=== PATIENT | male | born 1950 | race Caucasian/White ===

== ENCOUNTER 2022-11-14 14:33 | Inpatient (IN) | payer OTHER ==
[~2022-11-14] VITALS: Ht 175.3 cm; Wt 96.3 kg
[2022-11-14] MEDS ORDERED: cefTRIAXone 1GM/50ML D5W 50 ML IV ONE (15:30)
[2022-11-14] MEDS ORDERED: AZITHROMYCIN 500MG/ 250ML 250 ML IV ONE (15:30)
[2022-11-14 16:01] LABS: Basophils # (auto) 0 10 ^3/uL (0-0.2); Basophils % (auto) 0.5 % (0.0-2.0); Eosinophils # (auto) 0.1 10 ^3/uL (0-0.8); Eosinophils % (auto) 0.7 % (0.0-7.0); Hematocrit 41.6 % (41.0-53.0); Lymphocytes # (auto) 1.5 10 ^3/uL (0.4-5.4); Lymphocytes % (auto) 15.7 % (10.0-50.0); Mean Corpuscular Hemoglobin 31.9 pg (28.0-32.0); Mean Corpuscular Hgb Conc. 33.8 g/dL (32.0-36.0); Mean Corpuscular Volume 94.3 fL (80.0-100.0); Monocytes # (auto) 0.7 10 ^3/uL (0-1.3); Monocytes % (auto) 7.6 % (0.0-12.0); Neutrophils # (auto) 7.4 10 ^3/uL (1.6-8.6); Neutrophils % (auto) 75.5 % (37.0-80.0); Red Blood Cells 4.41 10^6/uL (4.5-5.90); Red Cell Distribution Width 13.5 % (11.8-14.3); White Blood Cell 9.7 10^3/uL (4.4-10.8)
[2022-11-14 16:06] LABS: INR 1.01 (0.9-1.15)
[2022-11-14 16:14] LABS: Albumin 3.8 g/dL (3.4-5.0); Calcium 8.7 mg/dL (8.5-10.1); Potassium 4.4 mmol/L (3.5-5.1)
[2022-11-14 16:19] LABS: BUN/Creatinine Ratio 17.3 (10.0-20.0); Bilirubin, Total 0.5 mg/dL (0.2-1.0); CRP High Sensitivity 0.13 mg/dL (< 0.3); Total Protein 6.8 g/dL (6.4-8.2)
[2022-11-14] MEDS ORDERED: SODIUM CHLORIDE 0.9% 500 ML IV ONE (17:15)
[2022-11-14] MEDS ORDERED: ALBUTEROL SULF 2.5 MG/0.5ML(0.5%) NEB SOLN NEB PRN (19:00)
[2022-11-14] MEDS ORDERED: IPRATROPIUM BROM 0.5 MG/2.5ML INH SOL NEB PRN (19:00)
[2022-11-14] MEDS ORDERED: ACETAMINOPHEN 325 MG TAB PO PRN (19:00)
[2022-11-14] MEDS ORDERED: MORPHINE SULFATE INJ 2 MG/ml SYRG IV PRN (19:00)
[2022-11-14] MEDS ORDERED: HYDROcodone-ACET 5/325MG TAB PO PRN (19:00)
[2022-11-14] MEDS ORDERED: NITROGLYCERIN 0.4 MG SL TAB SL PRN (19:00)
[2022-11-14] MEDS ORDERED: DOCUSATE SOD 100 MG CAP PO PRN (19:00)
[2022-11-14] MEDS ORDERED: ONDANSETRON HCL 4 MG/2 ML VIAL IV PRN (19:00)
[2022-11-14] MEDS ORDERED: ASPI-325 PO (19:08)
[2022-11-14] MEDS ORDERED: METO-289 PO (19:08)
[2022-11-14] MEDS ORDERED: TAMS0.4C36 PO (19:08)
[2022-11-14] MEDS ORDERED: LOVA40TA72 PO (19:08)
[2022-11-14] MEDS ORDERED: CLOP75TA70 PO (19:08)
[2022-11-14] MEDS ORDERED: ENAL20TA8 PO (19:08)
[2022-11-14] MEDS ORDERED: ATORVASTATIN 20 MG TAB PO SCH (22:00)
[2022-11-14 22:21] VITALS: BP 138/67
[2022-11-14] MEDS: SODIUM CHLOR 0.9% PF (SALINE LOCK) 10ML VIAL/SYR IV SCH (22:26)
[2022-11-14] MEDS: ENALAPRIL MALEATE 10 MG TAB PO SCH (22:26)
[2022-11-15] MEDS: SODIUM CHLOR 0.9% PF (SALINE LOCK) 10ML VIAL/SYR IV SCH (06:09)
[2022-11-15 06:44] LABS: Potassium 3.7 mmol/L (3.5-5.1)
[2022-11-15 06:45] LABS: Basophils # (auto) 0.1 10 ^3/uL (0-0.2); Basophils % (auto) 0.6 % (0.0-2.0); Eosinophils # (auto) 0.1 10 ^3/uL (0-0.8); Eosinophils % (auto) 1.4 % (0.0-7.0); Hematocrit 38.5 % (41.0-53.0); Hemoglobin 13.4 g/dL (13.5-17.5); Lymphocytes # (auto) 1.4 10 ^3/uL (0.4-5.4); Lymphocytes % (auto) 13.8 % (10.0-50.0); Mean Corpuscular Hemoglobin 32.4 pg (28.0-32.0); Mean Corpuscular Hgb Conc. 34.8 g/dL (32.0-36.0); Mean Corpuscular Volume 93.1 fL (80.0-100.0); Monocytes # (auto) 0.9 10 ^3/uL (0-1.3); Monocytes % (auto) 9.1 % (0.0-12.0); Neutrophils # (auto) 7.7 10 ^3/uL (1.6-8.6); Neutrophils % (auto) 75.1 % (37.0-80.0); Nucleated Red Blood Cells % 0.1 %; Red Blood Cells 4.14 10^6/uL (4.5-5.90); Red Cell Distribution Width 13.3 % (11.8-14.3); White Blood Cell 10.3 10^3/uL (4.4-10.8)
[2022-11-15 06:52] LABS: Albumin 3.2 g/dL (3.4-5.0); BUN/Creatinine Ratio 16.2 (10.0-20.0); Bilirubin, Total 0.8 mg/dL (0.2-1.0); Calcium 8.8 mg/dL (8.5-10.1)
[2022-11-15] MEDS ORDERED: cefTRIAXone 1GM/50ML D5W 50 ML IV SCH (09:00)
[2022-11-15] MEDS ORDERED: ASPirin-EC 81 mg tab PO SCH (10:00)
[2022-11-15] MEDS ORDERED: CLOPIDOGREL BISULFATE 75 MG TAB PO SCH (10:00)
[2022-11-15] MEDS ORDERED: TAMSULOSIN HYDROCHLORIDE 0.4 MG CAP PO SCH (10:00)
[2022-11-15] MEDS ORDERED: METOPROLOL SUCCINATE XL 50 MG TAB PO SCH (10:00)
[2022-11-15] MEDS ORDERED: AZITHROMYCIN 500MG/ 250ML 250 ML IV SCH (10:00)
[2022-11-15 10:50] VITALS: BP 107/56
[2022-11-15] MEDS: ENALAPRIL MALEATE 10 MG TAB PO SCH (10:56)
== END 2022-11-15 12:18 | disposition home or self-care (01) | DRG 194 ==
LOC: ER 14:33 → TELE 19:08
PROVIDERS: ADMIT Nurse Practitioner Family; ATTEND Internal Medicine
DX: J18.9 Pneumonia, unspecified organism (principal); R04.2 Hemoptysis; N40.0 Benign prostatic hyperplasia without lower urinary tract symptoms; I10 Essential (primary) hypertension; F17.210 Nicotine dependence, cigarettes, uncomplicated; E78.5 Hyperlipidemia, unspecified; Z20.822 Contact with and (suspected) exposure to COVID-19; Z96.652 Presence of left artificial knee joint; J20.9 Acute bronchitis, unspecified; R91.1 Solitary pulmonary nodule; Z71.6 Tobacco abuse counseling
CPT/HCPCS: 36415; 71046; 71250; 80053; 83605; 84484; 85025; 85610; 86141; 87040; 87426; G0378; J0696

== ENCOUNTER → 2023-02-18 | Outpatient (CLI) | payer OTHER ==
[~2023-02-18] MED LIST: ASPI-325 PO; CLOP75TA70 PO; ENAL1TAB48 PO; LOVA40TA72 PO; METO-289 PO; TAMS0.4C36 PO
[2023-02-18 14:15] LABS: Calcium 8.8 mg/dL (8.5-10.1); Potassium 4.1 mmol/L (3.5-5.1)
[2023-02-18 14:17] LABS: BUN/Creatinine Ratio 11.3 (10.0-20.0)
== END | disposition home or self-care (01) ==
LOC: LAB 13:13
PROVIDERS: ATTEND Internal Medicine
DX: I10 Essential (primary) hypertension (principal)
CPT/HCPCS: 36415; 80048

== ENCOUNTER → 2023-08-06 | Outpatient (CLI) | payer OTHER ==
[2023-08-06 07:44] LABS: Anion Gap 4 (5-15); Carbon Dioxide 26 mmol/L (20-30); Chloride 111 mmol/L (98-107); Potassium 4.1 mmol/L (3.5-5.1); Sodium 141 mmol/L (136-145)
[2023-08-06 07:45] LABS: Calcium 9.4 mg/dL (8.5-10.1)
[2023-08-06 07:50] LABS: BUN/Creatinine Ratio 8.3 (10.0-20.0); Blood Urea Nitrogen 7 mg/dL (9-23); Glucose 111 mg/dL (74-106); Triglycerides 94 mg/dL (< 150)
[2023-08-06 07:51] LABS: LDL Cholesterol 93 mg/dL (< 100)
[2023-08-06 07:52] LABS: Cholesterol 155 mg/dL (< 200); HDL Cholesterol 45 mg/dL (40-59)
== END | disposition home or self-care (01) ==
LOC: LAB 07:09
PROVIDERS: ATTEND Internal Medicine
DX: Z12.5 Encounter for screening for malignant neoplasm of prostate (principal); I10 Essential (primary) hypertension; E78.5 Hyperlipidemia, unspecified
CPT/HCPCS: 36415; 80048; 80061; 84153

== ENCOUNTER 2023-08-22 20:41 | Inpatient (IN) | payer OTHER ==
[~2023-08-22] VITALS: Ht 177.8 cm; Wt 79.6 kg
[2023-08-22 21:00] VITALS: PULSE 105; RESP 14; O2SAT 92
[2023-08-22 22:00] LABS: Alanine Aminotransferase 187 U/L (7-40); Alkaline Phosphatase 230 U/L (46-116); Anion Gap 6 (5-15); Aspartate Aminotransferase 440 U/L (13-40); BUN/Creatinine Ratio 11.9 (10.0-20.0); Bilirubin, Total 2.6 mg/dL (0.2-1.0); Blood Urea Nitrogen 12 mg/dL (9-23); Calcium 9.1 mg/dL (8.7-10.4); Carbon Dioxide 24 mmol/L (20-30); Chloride 110 mmol/L (98-107); Glucose 113 mg/dL (74-106); Potassium 3.8 mmol/L (3.5-5.1); Sodium 140 mmol/L (136-145); Total Protein 6.5 g/dL (5.7-8.2)
[2023-08-22 22:44] LABS: Hematocrit 44.6 % (41.0-53.0); Hemoglobin 15.2 g/dL (13.5-17.5); Lactic Acid w/Reflex 2.3 mmol/L (0.4-2.0); Mean Corpuscular Hemoglobin 31.9 pg (28.0-32.0); Mean Corpuscular Volume 93.9 fL (80.0-100.0); Red Blood Cells 4.75 10^6/uL (4.5-5.90); Red Cell Distribution Width 13.6 % (11.8-14.3); White Blood Cell 14.1 10^3/uL (4.4-10.8)
[2023-08-22 22:49] LABS: Basophils % (manual) 0 (0.0-2.0); Blast Cells 0; Eosinophils % (manual) 0 (0-7); Metamyelocytes % 0; Myelocytes % 0; Promyelocytes % 0; Reactive Lymphocytes 0
[2023-08-22 22:52] LABS: Urine Bacteria NONE SEEN /hpf (None Seen); Urine Blood Negative /uL (Negative); Urine Clarity Clear (Clear); Urine Color Yellow (Yellow); Urine Mucus FEW (None Seen); Urine Protein, UAD 2+ (Negative); Urine Specific Gravity 1.018 (1.001-1.035); Urine WBC 9 /hpf (0 - 3)
[2023-08-22 23:00] LABS: Band Neutrophils % (manual) 3; Lymphocytes % (manual) 3 (10.0-50.0); Monocytes % (manual) 3 (0-12)
[2023-08-22 23:01] LABS: Platelet Estimate Adequate
[2023-08-22] MEDS ORDERED: CEFTRIAXONE SODIUM 2 GM in D5W 5% 100 ML IV ONE (23:45)
[2023-08-23] MEDS: SODIUM CHLORIDE 0.9% 2,000 ML IV ONE (00:15)
[2023-08-23] MEDS: cefTRIAXone 1GM/50ML D5W 100 ML IV ONE (00:19)
[2023-08-23] MEDS: CEFTRIAXONE SODIUM 2 GM in D5W 5% 100 ML IV ONE (00:20)
[2023-08-23] MEDS ORDERED: hydrALAZINE HCL 20 MG/ML VL IV PRN (02:30)
[2023-08-23] MEDS ORDERED: DOCUSATE SOD 100 MG CAP PO PRN (02:30)
[2023-08-23] MEDS ORDERED: ACETAMINOPHEN 325 MG TAB PO PRN (02:30)
[2023-08-23] MEDS: HYDROcodone-ACET 5/325MG TAB PO PRN (04:04)
[2023-08-23] MEDS ORDERED: NITROGLYCERIN 0.4 MG SL TAB SL PRN (04:45)
[2023-08-23] MEDS ORDERED: MORPHINE SULFATE INJ 2 MG/ml SYRG IV PRN (04:45)
[2023-08-23 05:10] LABS: Basophils # (auto) 0 10 ^3/uL (0-0.2); Basophils % (auto) 0.1 % (0.0-2.0); Eosinophils # (auto) 0 10 ^3/uL (0-0.8); Hematocrit 41.9 % (41.0-53.0); Hemoglobin 14.4 g/dL (13.5-17.5); Lymphocytes # (auto) 0.4 10 ^3/uL (0.4-5.4); Lymphocytes % (auto) 1.9 % (10.0-50.0); Mean Corpuscular Hemoglobin 32.2 pg (28.0-32.0); Mean Corpuscular Hgb Conc. 34.2 g/dL (32.0-36.0); Monocytes % (auto) 4.9 % (0.0-12.0); Neutrophils % (auto) 93.1 % (37.0-80.0); Red Blood Cells 4.46 10^6/uL (4.5-5.90); Red Cell Distribution Width 13.4 % (11.8-14.3); White Blood Cell 19.3 10^3/uL (4.4-10.8)
[2023-08-23 05:33] LABS: Alanine Aminotransferase 277 U/L (7-40); Albumin 3.8 g/dL (3.2-4.8); Alkaline Phosphatase 205 U/L (46-116); Anion Gap 6 (5-15); Aspartate Aminotransferase 388 U/L (13-40); BUN/Creatinine Ratio 13.6 (10.0-20.0); Bilirubin, Total 2.1 mg/dL (0.2-1.0); Blood Urea Nitrogen 15 mg/dL (9-23); Calcium 8.9 mg/dL (8.7-10.4); Carbon Dioxide 24 mmol/L (20-30); Chloride 110 mmol/L (98-107); Glucose 121 mg/dL (74-106); Potassium 3.8 mmol/L (3.5-5.1); Sodium 140 mmol/L (136-145); Total Protein 6.2 g/dL (5.7-8.2)
[2023-08-23 08:00] VITALS: PULSE 90; RESP 12; O2SAT 91
[2023-08-23 09:40] LABS: Triglycerides 72 mg/dL (< 150)
[2023-08-23 09:41] LABS: LDL Cholesterol 67 mg/dL (< 100)
[2023-08-23 09:42] LABS: Cholesterol 126 mg/dL (< 200); HDL Cholesterol 42 mg/dL (40-59)
[2023-08-23] MEDS: LACTATED RINGER'S 1,000 ML IV SCH (10:37)
[2023-08-23] MEDS: ONDANSETRON HCL 4 MG/2 ML VIAL IV PRN (10:38)
[2023-08-23] MEDS: ENOXAPARIN SOD 40 MG/0.4 ML SYRINGE SC SCH (10:38)
[2023-08-23] MEDS: MORPHINE SULFATE INJ 2 MG/ml SYRG IV PRN (10:39)
[2023-08-23] MEDS: MEROPENEM 1GM IVPB 50 ML IV SCH (14:51)
[2023-08-23] MEDS ORDERED: metroNIDAZOLE 500MG/100ML 100 ML IV ONE (18:00)
[2023-08-23] MEDS ORDERED: metroNIDAZOLE 500MG/100ML 100 ML IV SCH (18:04)
[2023-08-23 18:44] VITALS: PULSE 87; RESP 16; O2SAT 91
[2023-08-23 19:54] LABS: Basophils # (auto) 0 10 ^3/uL (0-0.2); Basophils % (auto) 0.1 % (0.0-2.0); Eosinophils # (auto) 0 10 ^3/uL (0-0.8); Eosinophils % (auto) 0.1 % (0.0-7.0); Hematocrit 37.8 % (41.0-53.0); Hemoglobin 12.8 g/dL (13.5-17.5); Lymphocytes # (auto) 0.7 10 ^3/uL (0.4-5.4); Lymphocytes % (auto) 5.7 % (10.0-50.0); Mean Corpuscular Hemoglobin 31.8 pg (28.0-32.0); Mean Corpuscular Hgb Conc. 33.9 g/dL (32.0-36.0); Mean Corpuscular Volume 93.8 fL (80.0-100.0); Monocytes % (auto) 8.5 % (0.0-12.0); Neutrophils % (auto) 85.6 % (37.0-80.0); Nucleated Red Blood Cells % 0.1 %; Red Blood Cells 4.03 10^6/uL (4.5-5.90); Red Cell Distribution Width 13.8 % (11.8-14.3); White Blood Cell 11.7 10^3/uL (4.4-10.8)
[2023-08-23 20:00] VITALS: BP 113/54; PULSE 86; PULSE 92; RESP 18; TEMP 98.1; O2SAT 100
[2023-08-23 20:09] LABS: INR 1.29 (0.9-1.15); Partial Thromboplastin Time 31.4 SEC (24.5-34.5); Prothrombin Time 13.3 sec (9.3-11.8)
[2023-08-23 20:18] LABS: Alanine Aminotransferase 191 U/L (7-40); Albumin 3.8 g/dL (3.2-4.8); Alkaline Phosphatase 166 U/L (46-116); Anion Gap 5 (5-15); Aspartate Aminotransferase 159 U/L (13-40); BUN/Creatinine Ratio 24.2 (10.0-20.0); Blood Urea Nitrogen 24 mg/dL (9-23); Calcium 8.6 mg/dL (8.7-10.4); Carbon Dioxide 24 mmol/L (20-30); Chloride 110 mmol/L (98-107); Glucose 97 mg/dL (74-106); Magnesium 1.8 mg/dL (1.6-2.6); Potassium 3.6 mmol/L (3.5-5.1); Sodium 139 mmol/L (136-145); Total Protein 6.2 g/dL (5.7-8.2)
[2023-08-23 20:26] LABS: Lipase 1028 U/L (12-53)
[2023-08-23] MEDS: ENOXAPARIN SOD 100 MG/1 ML SYRINGE SC SCH (21:45)
[2023-08-23 22:00] VITALS: BP 113/54; PULSE 86; RESP 18; TEMP 98.1; O2SAT 100
[2023-08-24] MEDS ORDERED: cefTRIAXone 1GM/50ML D5W 50 ML IV SCH
[2023-08-24 04:26] LABS: Amphetamine Screen, Urine Neg (NEGATIVE); Barbiturate Scree,Urine Neg (NEGATIVE); Benzodiazephine Screen, Urine Neg (NEGATIVE); Cannabinoid Screen, Urine Neg (NEGATIVE); Cocaine Screen, Urine Neg (NEGATIVE); Opiate Scree,Urine Pos (NEGATIVE); Phencyclidine Screen, Urine Neg (NEGATIVE)
[2023-08-24 05:00] VITALS: BP 122/62; PULSE 71; RESP 20; TEMP 98.8; O2SAT 97
[2023-08-24 05:08] LABS: COVID19 ANTIGEN SOFIA FIA NEGATIVE (NEGATIVE)
[2023-08-24 07:05] LABS: Basophils # (auto) 0 10 ^3/uL (0-0.2); Basophils % (auto) 0.3 % (0.0-2.0); Eosinophils # (auto) 0 10 ^3/uL (0-0.8); Eosinophils % (auto) 0.3 % (0.0-7.0); Hematocrit 35.6 % (41.0-53.0); Hemoglobin 12.1 g/dL (13.5-17.5); Lymphocytes # (auto) 0.7 10 ^3/uL (0.4-5.4); Lymphocytes % (auto) 9.1 % (10.0-50.0); Mean Corpuscular Hemoglobin 32.2 pg (28.0-32.0); Mean Corpuscular Hgb Conc. 34.1 g/dL (32.0-36.0); Mean Corpuscular Volume 94.4 fL (80.0-100.0); Monocytes # (auto) 0.7 10 ^3/uL (0-1.3); Monocytes % (auto) 9.6 % (0.0-12.0); Neutrophils % (auto) 80.7 % (37.0-80.0); Red Blood Cells 3.77 10^6/uL (4.5-5.90); Red Cell Distribution Width 13.5 % (11.8-14.3); White Blood Cell 7.4 10^3/uL (4.4-10.8)
[2023-08-24 07:27] LABS: Alanine Aminotransferase 126 U/L (7-40); Albumin 3.3 g/dL (3.2-4.8); Alkaline Phosphatase 140 U/L (46-116); Anion Gap 7 (5-15); Aspartate Aminotransferase 90 U/L (13-40); BUN/Creatinine Ratio 28.6 (10.0-20.0); Bilirubin, Total 1.7 mg/dL (0.2-1.0); Blood Urea Nitrogen 22 mg/dL (9-23); Calcium 8.3 mg/dL (8.7-10.4); Carbon Dioxide 21 mmol/L (20-30); Chloride 112 mmol/L (98-107); Glucose 83 mg/dL (74-106); Lipase 521 U/L (12-53); Magnesium 1.8 mg/dL (1.6-2.6); Potassium 3.6 mmol/L (3.5-5.1); Sodium 140 mmol/L (136-145); Total Protein 5.4 g/dL (5.7-8.2)
[2023-08-24 07:50] VITALS: BP 122/62; PULSE 71; RESP 20; TEMP 98.8
[2023-08-24 08:00] VITALS: PULSE 71; PULSE 77; RESP 20; O2SAT 97
[2023-08-24 12:48] VITALS: BP 125/68; PULSE 75; RESP 20
[2023-08-24] MEDS ORDERED: TAMSULOSIN HYDROCHLORIDE 0.4 MG CAP PO SCH (18:00)
== END 2023-08-24 16:15 | disposition short-term general hospital (02) | DRG 871 ==
LOC: EDBD 20:41 → EDUNIT# 20:41 → ER 20:41 → TELE 08-23 04:38 → TELE-EAST 08-23 18:08
PROVIDERS: ADMIT Nurse Practitioner Family; ATTEND Surgery
DX: A41.9 Sepsis, unspecified organism (principal); K85.10 Biliary acute pancreatitis without necrosis or infection; N39.0 Urinary tract infection, site not specified; I10 Essential (primary) hypertension; R09.89 Other specified symptoms and signs involving the circulatory and respiratory systems; E78.5 Hyperlipidemia, unspecified; N40.0 Benign prostatic hyperplasia without lower urinary tract symptoms; K80.50 Calculus of bile duct without cholangitis or cholecystitis without obstruction; Z20.822 Contact with and (suspected) exposure to COVID-19; F17.210 Nicotine dependence, cigarettes, uncomplicated; R74.01 Elevation of levels of liver transaminase levels; Z79.82 Long term (current) use of aspirin; Z79.899 Other long term (current) drug therapy
CPT/HCPCS: 36415; 74181; 80053; 80061; 80307; 81001; 82150; 82248; 82306; 82607; 83036; 83605; 83690; 83735; 83880; 84443; 84484; 85007; 85025; 85027; 85610; 85730; 87040; 87077; 87086; 87186; 87426; 93005; 96365; 96372; 96375; G0378; J0696; J2185; J2405; J7060

== ENCOUNTER 2023-09-08 15:18 | Inpatient (IN) | payer OTHER ==
[~2023-09-08] VITALS: Ht 180.3 cm; Wt 207.6 kg
[2023-09-08 17:25] LABS: Basophils # (auto) 0.1 10 ^3/uL (0-0.2); Basophils % (auto) 0.5 % (0.0-2.0); Eosinophils # (auto) 0.2 10 ^3/uL (0-0.8); Eosinophils % (auto) 1.4 % (0.0-7.0); Hematocrit 42.2 % (41.0-53.0); Hemoglobin 14.4 g/dL (13.5-17.5); Lymphocytes # (auto) 1.4 10 ^3/uL (0.4-5.4); Lymphocytes % (auto) 10.3 % (10.0-50.0); Mean Corpuscular Hemoglobin 31.9 pg (28.0-32.0); Mean Corpuscular Hgb Conc. 34.1 g/dL (32.0-36.0); Mean Corpuscular Volume 93.4 fL (80.0-100.0); Monocytes # (auto) 1.6 10 ^3/uL (0-1.3); Neutrophils # (auto) 10.1 10 ^3/uL (1.6-8.6); Neutrophils % (auto) 75.8 % (37.0-80.0); Red Blood Cells 4.52 10^6/uL (4.5-5.90); Red Cell Distribution Width 13.3 % (11.8-14.3); White Blood Cell 13.3 10^3/uL (4.4-10.8)
[2023-09-08 17:30] LABS: Chloride 103 mmol/L (98-107); Potassium 4.5 mmol/L (3.5-5.1); Sodium 134 mmol/L (136-145)
[2023-09-08 17:31] LABS: Anion Gap 4 (5-15); Calcium 9.5 mg/dL (8.5-10.1); Carbon Dioxide 27 mmol/L (20-30)
[2023-09-08 17:36] LABS: BUN/Creatinine Ratio 11.3 (10.0-20.0); Blood Urea Nitrogen 9 mg/dL (9-23); Glucose 102 mg/dL (74-106)
[2023-09-08] MEDS ORDERED: PIPERACILLIN-TAZOB 3.375GM 100 ML IV ONE (19:00)
[2023-09-08] MEDS ORDERED: VANCOMYCIN 1GM/200ML 200 ML IV ONE (19:00)
[2023-09-08] MEDS ORDERED: DOCUSATE SOD 100 MG CAP PO PRN (21:15)
[2023-09-08] MEDS ORDERED: ONDANSETRON HCL 4 MG/2 ML VIAL IV PRN (21:15)
[2023-09-08] MEDS ORDERED: ACETAMINOPHEN 325 MG TAB PO PRN (21:15)
[2023-09-08] MEDS ORDERED: VANCOMYCIN PER PHARMACY 0 MG IV SCH (21:15)
[2023-09-08] MEDS ORDERED: LISI10TA34 PO (21:40)
[2023-09-08] MEDS: HYDROcodone-ACET 10/325MG TAB PO ONE (21:51)
[2023-09-08] MEDS: PRAVASTATIN SODIUM 20 MG TAB PO SCH (22:32)
[2023-09-08] MEDS: LISINOPRIL 10 MG TAB PO SCH (22:33)
[2023-09-08] MEDS: VANCOMYCIN 1GM/200ML 200 ML IV ONE (22:39)
[2023-09-09] MEDS: AMPICILLIN & SULBACTAM SODIUM 3 GM in SODIUM CHL 0.9% 100 ML IV SCH (04:17)
[2023-09-09] MEDS: HYDROcodone-ACET 5/325MG TAB PO PRN (06:49)
[2023-09-09 07:16] LABS: Basophils # (auto) 0 10 ^3/uL (0-0.2); Basophils % (auto) 0.4 % (0.0-2.0); Eosinophils # (auto) 0 10 ^3/uL (0-0.8); Eosinophils % (auto) 0.4 % (0.0-7.0); Hematocrit 35.9 % (41.0-53.0); Hemoglobin 12.4 g/dL (13.5-17.5); Lymphocytes # (auto) 1.4 10 ^3/uL (0.4-5.4); Lymphocytes % (auto) 11.9 % (10.0-50.0); Mean Corpuscular Hemoglobin 32.3 pg (28.0-32.0); Mean Corpuscular Hgb Conc. 34.6 g/dL (32.0-36.0); Mean Corpuscular Volume 93.3 fL (80.0-100.0); Monocytes # (auto) 1.5 10 ^3/uL (0-1.3); Monocytes % (auto) 13.5 % (0.0-12.0); Neutrophils # (auto) 8.4 10 ^3/uL (1.6-8.6); Neutrophils % (auto) 73.8 % (37.0-80.0); Red Blood Cells 3.85 10^6/uL (4.5-5.90); Red Cell Distribution Width 13.4 % (11.8-14.3); White Blood Cell 11.4 10^3/uL (4.4-10.8)
[2023-09-09 07:36] LABS: Alanine Aminotransferase 13 U/L (7-40); Alkaline Phosphatase 88 U/L (46-116); Anion Gap 4 (5-15); BUN/Creatinine Ratio 12.8 (10.0-20.0); Blood Urea Nitrogen 12 mg/dL (9-23); Calcium 8.9 mg/dL (8.5-10.1); Carbon Dioxide 23 mmol/L (20-30); Chloride 108 mmol/L (98-107); Glucose 115 mg/dL (74-106); Potassium 4.5 mmol/L (3.5-5.1); Sodium 135 mmol/L (136-145)
[2023-09-09 07:37] LABS: Albumin 3.9 g/dL (3.2-4.8); Aspartate Aminotransferase 13 U/L (13-40); Bilirubin, Total 1.1 mg/dL (0.2-1.0); Total Protein 6.5 g/dL (5.7-8.2)
[2023-09-09 07:49] VITALS: RESP 18; O2SAT 96
[2023-09-09] MEDS: VANCOMYCIN 1GM/200ML 200 ML IV SCH (09:49)
[2023-09-09 11:47] LABS: Erythrocyte Sedimentation Rate 30 mm/hr (0-20)
[2023-09-09] MEDS: ASPirin-EC 81 mg tab PO SCH (13:50)
[2023-09-09] MEDS: ERGOCALCIFEROL 50,000 UNIT(1.25MG) CAP PO SCH (13:50)
[2023-09-09] MEDS: METOPROLOL SUCCINATE XL 50 MG TAB PO SCH (13:50)
[2023-09-09] MEDS: ENOXAPARIN SOD 40 MG/0.4 ML SYRINGE SC SCH (13:51)
[2023-09-09] MEDS: TAMSULOSIN HYDROCHLORIDE 0.4 MG CAP PO SCH (19:50)
[2023-09-09] MEDS: LISINOPRIL 5 MG TAB PO SCH (22:00)
[2023-09-09 22:55] VITALS: PULSE 78; RESP 20; O2SAT 99
[2023-09-09 22:56] VITALS: PULSE 78; RESP 20; O2SAT 99
[2023-09-10 05:00] VITALS: BP 112/40; PULSE 77; RESP 21; TEMP 98.5; O2SAT 95
[2023-09-10] MEDS: AMPICILLIN & SULBACTAM SODIUM 3 GM in SODIUM CHL 0.9% 100 ML IV SCH (06:24)
[2023-09-10 06:50] LABS: Basophils # (auto) 0.1 10 ^3/uL (0-0.2); Basophils % (auto) 0.6 % (0.0-2.0); Eosinophils # (auto) 0 10 ^3/uL (0-0.8); Eosinophils % (auto) 0.4 % (0.0-7.0); Hematocrit 34.2 % (41.0-53.0); Hemoglobin 11.6 g/dL (13.5-17.5); Lymphocytes # (auto) 1.2 10 ^3/uL (0.4-5.4); Lymphocytes % (auto) 10.7 % (10.0-50.0); Mean Corpuscular Hemoglobin 31.6 pg (28.0-32.0); Mean Corpuscular Hgb Conc. 33.9 g/dL (32.0-36.0); Mean Corpuscular Volume 93.2 fL (80.0-100.0); Monocytes # (auto) 1.5 10 ^3/uL (0-1.3); Monocytes % (auto) 13.1 % (0.0-12.0); Neutrophils # (auto) 8.4 10 ^3/uL (1.6-8.6); Neutrophils % (auto) 75.2 % (37.0-80.0); Red Blood Cells 3.67 10^6/uL (4.5-5.90); Red Cell Distribution Width 13.5 % (11.8-14.3); White Blood Cell 11.1 10^3/uL (4.4-10.8)
[2023-09-10 06:56] LABS: Urine Bacteria NONE SEEN /hpf (None Seen); Urine Blood Negative /uL (Negative); Urine Clarity Clear (Clear); Urine Color Colorless (Yellow); Urine Protein, UAD 1+ (Negative); Urine Specific Gravity 1.016 (1.001-1.035); Urine Urobilinogen Normal (Negative); Urine WBC 2 /hpf (0 - 3)
[2023-09-10 07:02] LABS: Alanine Aminotransferase 11 U/L (7-40); Alkaline Phosphatase 78 U/L (46-116); Anion Gap 6 (5-15); BUN/Creatinine Ratio 19.7 (10.0-20.0); Blood Urea Nitrogen 14 mg/dL (9-23); Calcium 8.8 mg/dL (8.5-10.1); Carbon Dioxide 20 mmol/L (20-30); Chloride 108 mmol/L (98-107); Glucose 95 mg/dL (74-106); Potassium 4.1 mmol/L (3.5-5.1); Sodium 134 mmol/L (136-145)
[2023-09-10 07:03] LABS: Albumin 3.5 g/dL (3.2-4.8); Aspartate Aminotransferase 14 U/L (13-40); Bilirubin, Total 0.9 mg/dL (0.2-1.0)
[2023-09-10 07:41] LABS: Magnesium 1.6 mg/dL (1.6-2.6)
[2023-09-10 08:37] VITALS: BP 101/52; PULSE 69; RESP 18; TEMP 98.3; O2SAT 96
[2023-09-10] MEDS: MORPHINE SULFATE INJ 2 MG/ml SYRG IV PRN (12:23)
[2023-09-10] MEDS: cefTRIAXone 1GM/50ML D5W 50 ML IV SCH (12:24)
[2023-09-10 12:45] VITALS: BP 105/68; PULSE 92; RESP 19; TEMP 97.9; O2SAT 94
[2023-09-10] MEDS ORDERED: ACETAMINOPHEN 325 MG TAB PO PRN (14:15)
[2023-09-10 14:48] LABS: INR 1.12 (0.9-1.15); Prothrombin Time 11.7 sec (9.3-11.8)
[2023-09-10 16:39] VITALS: BP 134/72; PULSE 90; RESP 19; TEMP 100.7; O2SAT 92
[2023-09-10] MEDS: ACETAMINOPHEN 325 MG TAB PO ONE (17:50)
[2023-09-10 20:00] VITALS: BP 105/52; PULSE 63; RESP 20; TEMP 98; O2SAT 96
[2023-09-10 21:55] LABS: Urine Bacteria NONE SEEN /hpf (None Seen); Urine Blood Negative /uL (Negative); Urine Clarity Clear (Clear); Urine Color Yellow (Yellow); Urine Protein, UAD 1+ (Negative); Urine Specific Gravity 1.025 (1.001-1.035); Urine Urobilinogen Normal (Negative); Urine WBC 2 /hpf (0 - 3); Urine pH 5.5 (5.0-8.0)
[2023-09-10] MEDS: DAKINS QUARTER STR 0.125% (NaHypochlorite) 473 ML TOPICAL SOL TOP SCH (22:00)
[2023-09-11 05:00] VITALS: BP 96/45; PULSE 74; RESP 20; TEMP 98.9; O2SAT 96
[2023-09-11 07:26] LABS: Basophils # (auto) 0.1 10 ^3/uL (0-0.2); Basophils % (auto) 0.9 % (0.0-2.0); Eosinophils # (auto) 0.1 10 ^3/uL (0-0.8); Eosinophils % (auto) 1.1 % (0.0-7.0); Hematocrit 33.7 % (41.0-53.0); Hemoglobin 11.5 g/dL (13.5-17.5); Lymphocytes # (auto) 0.7 10 ^3/uL (0.4-5.4); Lymphocytes % (auto) 8.2 % (10.0-50.0); Mean Corpuscular Hemoglobin 31.9 pg (28.0-32.0); Mean Corpuscular Hgb Conc. 34.1 g/dL (32.0-36.0); Mean Corpuscular Volume 93.5 fL (80.0-100.0); Monocytes # (auto) 1.1 10 ^3/uL (0-1.3); Monocytes % (auto) 12.1 % (0.0-12.0); Neutrophils # (auto) 6.8 10 ^3/uL (1.6-8.6); Neutrophils % (auto) 77.7 % (37.0-80.0); Red Cell Distribution Width 13.2 % (11.8-14.3); White Blood Cell 8.7 10^3/uL (4.4-10.8)
[2023-09-11 07:33] LABS: Chloride 109 mmol/L (98-107); Potassium 3.8 mmol/L (3.5-5.1); Sodium 135 mmol/L (136-145)
[2023-09-11 07:34] LABS: Anion Gap 6 (5-15); Calcium 8.5 mg/dL (8.7-10.4); Carbon Dioxide 20 mmol/L (20-30)
[2023-09-11 07:39] LABS: BUN/Creatinine Ratio 22.1 (10.0-20.0); Blood Urea Nitrogen 15 mg/dL (9-23); Glucose 108 mg/dL (74-106); Magnesium 1.6 mg/dL (1.6-2.6)
[2023-09-11 08:00] VITALS: BP 99/50; PULSE 94; RESP 18; TEMP 98.3; O2SAT 96
[2023-09-11] MEDS: SODIUM CHLORIDE 0.9% 1,000 ML IV SCH (09:21)
[2023-09-11 12:04] VITALS: BP 99/50; PULSE 94; RESP 18; TEMP 98.3; O2SAT 96
[2023-09-11 13:00] VITALS: BP 131/61; PULSE 75; RESP 16; TEMP 98.1; O2SAT 90
[2023-09-11] MEDS: LIDOCAINE 1% (LOCAL ANESTH.) PF 5ml SDV ID ONE (15:00)
[2023-09-11 16:35] VITALS: BP 124/54; PULSE 93; RESP 18; TEMP 98; O2SAT 95
[2023-09-11] MEDS ORDERED: CHOL20007 PO (21:55)
[2023-09-11] MEDS ORDERED: SODIUM CHLOR 0.9% PF (SALINE LOCK) 10ML VIAL/SYR IV SCH (22:00)
[2023-09-12] MEDS ORDERED: VANCOMYCIN 1GM/200ML 200 ML IV SCH
== END 2023-09-11 16:52 | disposition home health service (06) | DRG 603 ==
LOC: ER 15:18 → OVERFLOW 21:34 → WEST WING 21:34
PROVIDERS: ADMIT Internal Medicine; ATTEND Internal Medicine
PROC: 02HV33Z Insertion of Infusion Device into Superior Vena Cava, Percutaneous Approach (ICD-10-PCS; principal; 2023-09-11)
PROC: B548ZZA Ultrasonography of Superior Vena Cava, Guidance (ICD-10-PCS; 2023-09-11)
DX: L03.116 Cellulitis of left lower limb (principal); M86.8X7 Other osteomyelitis, ankle and foot; E78.5 Hyperlipidemia, unspecified; F17.210 Nicotine dependence, cigarettes, uncomplicated; I10 Essential (primary) hypertension; I25.10 Atherosclerotic heart disease of native coronary artery without angina pectoris; N40.0 Benign prostatic hyperplasia without lower urinary tract symptoms; L97.529 Non-pressure chronic ulcer of other part of left foot with unspecified severity; I73.9 Peripheral vascular disease, unspecified; E55.9 Vitamin D deficiency, unspecified; Z95.5 Presence of coronary angioplasty implant and graft; Z79.82 Long term (current) use of aspirin
CPT/HCPCS: 36415; 36569; 71045; 73700; 78315; 80048; 80053; 80202; 81001; 83605; 83690; 83735; 85025; 85610; 85652; 86141; 86301; 87040; 87081; 87205; 93925; 93971; 96365; G0378

== ENCOUNTER 2023-09-22 12:37 | Inpatient (IN) | payer OTHER ==
[~2023-09-22] VITALS: Ht 177.8 cm; Wt 92.8 kg
[~2023-09-22 12:37] MED LIST changes: +CHOL20007 PO; -ENAL1TAB48 PO; +LISI10TA34 PO
[2023-09-22 14:20] LABS: Basophils # (auto) 0 10 ^3/uL (0-0.2); Basophils % (auto) 0.4 % (0.0-2.0); Eosinophils # (auto) 0.2 10 ^3/uL (0-0.8); Eosinophils % (auto) 2.3 % (0.0-7.0); Hematocrit 34.6 % (41.0-53.0); Lymphocytes # (auto) 0.7 10 ^3/uL (0.4-5.4); Lymphocytes % (auto) 10.9 % (10.0-50.0); Mean Corpuscular Hemoglobin 31.5 pg (28.0-32.0); Mean Corpuscular Hgb Conc. 34.7 g/dL (32.0-36.0); Mean Corpuscular Volume 90.9 fL (80.0-100.0); Monocytes % (auto) 14.8 % (0.0-12.0); Neutrophils # (auto) 4.7 10 ^3/uL (1.6-8.6); Neutrophils % (auto) 71.6 % (37.0-80.0); Red Blood Cells 3.81 10^6/uL (4.5-5.90); Red Cell Distribution Width 13.2 % (11.8-14.3); White Blood Cell 6.6 10^3/uL (4.4-10.8)
[2023-09-22 14:26] LABS: Chloride 103 mmol/L (98-107); Potassium 3.7 mmol/L (3.5-5.1); Sodium 136 mmol/L (136-145)
[2023-09-22 14:27] LABS: Anion Gap 6 (5-15); Carbon Dioxide 27 mmol/L (20-30)
[2023-09-22 14:28] LABS: Calcium 8.4 mg/dL (8.5-10.1)
[2023-09-22 14:32] LABS: BUN/Creatinine Ratio 14.7 (10.0-20.0); Blood Urea Nitrogen 11 mg/dL (9-23); Glucose 105 mg/dL (74-106)
[2023-09-22] MEDS ORDERED: ACETAMINOPHEN 325 MG TAB PO PRN (16:15)
[2023-09-22] MEDS ORDERED: VANCOMYCIN PER PHARMACY 0 MG IV SCH (16:15)
[2023-09-22 16:47] LABS: INR 1.14 (0.9-1.15); Prothrombin Time 11.9 sec (9.3-11.8)
[2023-09-22 16:48] LABS: CRP High Sensitivity 1.07 mg/dL (<1.0)
[2023-09-22 17:07] LABS: Erythrocyte Sedimentation Rate 54 mm/hr (0-20)
[2023-09-22] MEDS: PANTOPRAZOLE 40 MG/10 ML VIAL INJ IV ONE (21:34)
[2023-09-22] MEDS: HYDROcodone-ACET 5/325MG TAB PO PRN (21:34)
[2023-09-22] MEDS: PRAVASTATIN SODIUM 20 MG TAB PO SCH (21:34)
[2023-09-22] MEDS: VANCOMYCIN 1GM/200ML 200 ML IV ONE (21:35)
[2023-09-22] MEDS: LISINOPRIL 5 MG TAB PO SCH (21:35)
[2023-09-22] MEDS: TAMSULOSIN HYDROCHLORIDE 0.4 MG CAP PO SCH (21:35)
[2023-09-22] MEDS: ASCORBIC ACID 500 MG TAB PO SCH (21:37)
[2023-09-22] MEDS: SODIUM CHLORIDE 0.9% 1,000 ML IV SCH (23:12)
[2023-09-22 23:15] VITALS: PULSE 72; RESP 16; O2SAT 96
[2023-09-23] VITALS (8 sets, daily range): BP systolic 111–151; BP diastolic 36–67; PULSE 64–81; RESP 16–97; TEMP 98–98.6; O2SAT 94–99
[2023-09-23 03:40] LABS: Urine Bacteria NONE SEEN /hpf (None Seen); Urine Blood Negative /uL (Negative); Urine Clarity Clear (Clear); Urine Color Yellow (Yellow); Urine Mucus FEW (None Seen); Urine Protein, UAD 1+ (Negative); Urine Urobilinogen Normal (Negative); Urine WBC 1 /hpf (0 - 3)
[2023-09-23 06:54] LABS: Hematocrit 30.6 % (41.0-53.0); Hemoglobin 10.5 g/dL (13.5-17.5); Mean Corpuscular Hemoglobin 31.3 pg (28.0-32.0); Mean Corpuscular Hgb Conc. 34.4 g/dL (32.0-36.0); Mean Corpuscular Volume 90.9 fL (80.0-100.0); Red Blood Cells 3.37 10^6/uL (4.5-5.90); White Blood Cell 4.8 10^3/uL (4.4-10.8)
[2023-09-23 07:18] LABS: Basophils % (manual) 0 (0.0-2.0); Blast Cells 0; Metamyelocytes % 0; Myelocytes % 0; Promyelocytes % 0; Reactive Lymphocytes 0
[2023-09-23 07:19] LABS: Alanine Aminotransferase 15 U/L (7-40); Alkaline Phosphatase 79 U/L (46-116); Anion Gap 7 (5-15); BUN/Creatinine Ratio 15.2 (10.0-20.0); Blood Urea Nitrogen 10 mg/dL (9-23); Carbon Dioxide 23 mmol/L (20-30); Chloride 107 mmol/L (98-107); Glucose 91 mg/dL (74-106); Potassium 3.5 mmol/L (3.5-5.1); Sodium 137 mmol/L (136-145)
[2023-09-23 07:20] LABS: Albumin 3.1 g/dL (3.2-4.8); Aspartate Aminotransferase 24 U/L (13-40); Bilirubin, Total 0.4 mg/dL (0.2-1.0); Total Protein 5.5 g/dL (5.7-8.2)
[2023-09-23] MEDS: cefTRIAXone 1GM/50ML D5W 50 ML IV SCH (08:32)
[2023-09-23] MEDS: VANCOMYCIN 1GM/200ML 200 ML IV SCH (08:32)
[2023-09-23] MEDS: METOPROLOL SUCCINATE XL 50 MG TAB PO SCH (08:34)
[2023-09-23] MEDS: ZINC SULFATE 220mg CAP or TAB PO SCH (08:34)
[2023-09-23] MEDS: MULTIPLE VITAMIN TAB PO SCH (08:35)
[2023-09-23] MEDS: PANTOPRAZOLE 40 MG/10 ML VIAL INJ IV SCH (08:35)
[2023-09-23] MEDS: CHOLECALCIFEROL (VITD3) 1,000UNIT=25mCg TAB PO SCH (08:35)
[2023-09-23 09:15] LABS: Band Neutrophils % (manual) 1; Eosinophils % (manual) 8 (0-7); Lymphocytes % (manual) 20 (10.0-50.0); Monocytes % (manual) 11 (0-12)
[2023-09-23 09:16] LABS: Platelet Estimate Adequate; RBC Morphology Normal
[2023-09-23] MEDS: DAKINS QUARTER STR 0.125% (NaHypochlorite) 473 ML TOPICAL SOL TOP SCH (13:26)
[2023-09-24] VITALS (7 sets, daily range): BP systolic 121–140; BP diastolic 53–61; PULSE 66–84; RESP 16–19; TEMP 97.8–98.6; O2SAT 93–97
[2023-09-24 05:59] LABS: Chloride 107 mmol/L (98-107); Potassium 3.6 mmol/L (3.5-5.1); Sodium 137 mmol/L (136-145)
[2023-09-24 06:00] LABS: Anion Gap 8 (5-15); Calcium 7.9 mg/dL (8.5-10.1); Carbon Dioxide 22 mmol/L (20-30)
[2023-09-24 06:05] LABS: BUN/Creatinine Ratio 16.2 (10.0-20.0); Blood Urea Nitrogen 11 mg/dL (9-23); Glucose 93 mg/dL (74-106)
[2023-09-24] MEDS ORDERED: KETAMINE 50mg/ML 1ml syringe ONE (12:23)
[2023-09-24] MEDS ORDERED: PROPOFOL 10 MG/ML 20 ML IV ONE (12:23)
[2023-09-24] MEDS ORDERED: ONDANSETRON HCL 4 MG/2 ML VIAL ONE (12:23)
[2023-09-24] MEDS ORDERED: SODIUM CHLORIDE LOCK 10 ML ONE (12:23)
[2023-09-24] MEDS ORDERED: fentaNYL CITRATE 100 MCG/2 ML VL ONE (12:23)
[2023-09-24] MEDS ORDERED: LIDOCAINE 1% INJ PF 5ML AMP ONE (12:23)
[2023-09-24] MEDS ORDERED: MIDAZOLAM HCL 2MG/2ML 2ml VIAL (1mg/ml) ONE (12:23)
[2023-09-24] MEDS ORDERED: DexAMETHasone SOD PHOS 10MG/1ML VIAL INJ ONE (12:23)
[2023-09-24] MEDS: ceFAZolin 1GM/50ML 50 ML IV ONE (13:24)
[2023-09-24] MEDS ORDERED: HYDROmorphone HCL 2 MG/ML VL/or syr IV PRN ×2 (14:15)
[2023-09-24] MEDS ORDERED: METOCLOPRAMIDE HCL 5MG/ml INJ 2ml VIAL IV PRN (14:15)
[2023-09-24] MEDS ORDERED: MORPHINE SULFATE INJ 2 MG/ml SYRG IV PRN (14:15)
[2023-09-25] VITALS (7 sets, daily range): BP systolic 99–151; BP diastolic 40–70; PULSE 70–100; RESP 16–21; TEMP 97.6–98.1; O2SAT 91–96
[2023-09-25] MEDS: VANCOMYCIN 1GM/200ML 200 ML IV SCH (10:00)
[2023-09-25] MEDS: DIPHENOXYLATE W/ATROPINE 2.5 MG TAB PO PRN (17:04)
[2023-09-25] MEDS: FLORASTOR (S. BOULARDII) 250 MG CAP PO SCH (17:04)
[2023-09-25] MEDS: SIMETHICONE 80 MG CHEWABLE TABLET PO ONE (17:04)
[2023-09-26 01:00] VITALS: BP 98/47; PULSE 64; RESP 18; TEMP 97.3; O2SAT 94
[2023-09-26 08:00] VITALS: PULSE 70; RESP 16; O2SAT 94
[2023-09-26 09:00] VITALS: BP_SYST 108; BP_SYST 111; BP_DIAS 54; BP_DIAS 73; PULSE 110; PULSE 94; RESP 16; TEMP 97.5; TEMP 98.2; O2SAT 98
[2023-09-26] MEDS ORDERED: SIME80CH49 PO (10:44)
[2023-09-26] MEDS ORDERED: SACC250C PO (10:44)
[2023-09-26 12:21] VITALS: BP 108/54; PULSE 70; RESP 16; TEMP 36.4; O2SAT 94
[2023-09-26 13:00] VITALS: BP 109/55; PULSE 110; RESP 16; TEMP 97.3; O2SAT 98
== END 2023-09-26 14:21 | disposition home health service (06) | DRG 505 ==
LOC: ER 12:37 → OVERFLOW 16:09 → WEST WING 23:44
PROVIDERS: ADMIT Nurse Practitioner Family; ATTEND Nurse Practitioner Acute Care
PROC: 0Y6Q0Z0 Detachment at Left 1st Toe, Complete, Open Approach (ICD-10-PCS; principal; 2023-09-24 13:16)
DX: M86.8X7 Other osteomyelitis, ankle and foot (principal); L03.032 Cellulitis of left toe; I10 Essential (primary) hypertension; E66.01 Morbid (severe) obesity due to excess calories; E78.5 Hyperlipidemia, unspecified; F17.210 Nicotine dependence, cigarettes, uncomplicated; Z68.29 Body mass index [BMI] 29.0-29.9, adult; I73.9 Peripheral vascular disease, unspecified
CPT/HCPCS: 36415; 73700; 80048; 80053; 80061; 80202; 81001; 82565; 84443; 85007; 85025; 85027; 85610; 85652; 86141; 87070; 87075; 87081; 87205; 93306; 93926; C9113; G0378; J1100; J2250; J2405; J2704

== ENCOUNTER → 2023-11-12 | Outpatient (CLI) | payer OTHER ==
[~2023-11-12] MED LIST changes: +SACC250C PO; +SIME80CH49 PO
[2023-11-12 09:15] LABS: Basophils # (auto) 0 10 ^3/uL (0-0.2); Basophils % (auto) 0.6 % (0.0-2.0); Eosinophils # (auto) 0.1 10 ^3/uL (0-0.8); Eosinophils % (auto) 1.4 % (0.0-7.0); Hematocrit 36.7 % (41.0-53.0); Hemoglobin 12.3 g/dL (13.5-17.5); Lymphocytes # (auto) 1.6 10 ^3/uL (0.4-5.4); Mean Corpuscular Hemoglobin 31.2 pg (28.0-32.0); Mean Corpuscular Hgb Conc. 33.4 g/dL (32.0-36.0); Mean Corpuscular Volume 93.5 fL (80.0-100.0); Monocytes # (auto) 0.7 10 ^3/uL (0-1.3); Monocytes % (auto) 9.2 % (0.0-12.0); Neutrophils # (auto) 4.9 10 ^3/uL (1.6-8.6); Neutrophils % (auto) 66.8 % (37.0-80.0); Red Blood Cells 3.93 10^6/uL (4.5-5.90); Red Cell Distribution Width 15.4 % (11.8-14.3); White Blood Cell 7.3 10^3/uL (4.4-10.8)
[2023-11-12 10:44] LABS: Erythrocyte Sedimentation Rate 25 mm/hr (0-20)
== END | disposition home or self-care (01) ==
LOC: LAB 08:46
PROVIDERS: ATTEND Internal Medicine
DX: L98.499 Non-pressure chronic ulcer of skin of other sites with unspecified severity (principal); D64.9 Anemia, unspecified
CPT/HCPCS: 36415; 85025; 85652; 86141; 86301

== ENCOUNTER → 2024-03-02 | Outpatient (CLI) | payer OTHER ==
[~2024-03-02] MED LIST changes: -TAMS0.4C36 PO; +TAMS0.4C39 PO
[2024-03-02 07:21] LABS: Anion Gap 5 (5-15); Carbon Dioxide 22 mmol/L (20-30); Chloride 112 mmol/L (98-107); Potassium 4.2 mmol/L (3.5-5.1); Sodium 139 mmol/L (136-145)
[2024-03-02 07:23] LABS: Calcium 9.5 mg/dL (8.7-10.4)
[2024-03-02 07:27] LABS: Glucose 111 mg/dL (74-106)
[2024-03-02 07:28] LABS: Blood Urea Nitrogen 16 mg/dL (9-23); LDL Cholesterol 88 mg/dL (< 100); Triglycerides 91 mg/dL (< 150)
[2024-03-02 07:30] LABS: Cholesterol 145 mg/dL (< 200); HDL Cholesterol 39 mg/dL (40-59)
== END | disposition home or self-care (01) ==
LOC: LAB 06:15
PROVIDERS: ATTEND Internal Medicine
DX: Z12.5 Encounter for screening for malignant neoplasm of prostate (principal); E78.5 Hyperlipidemia, unspecified; I10 Essential (primary) hypertension
CPT/HCPCS: 36415; 80048; 80061; 84153

== ENCOUNTER 2024-10-13 08:33 | Day surgery (SDC) | payer OTHER ==
[2024-10-07 11:19] LABS: Urine Bacteria None Seen /hpf (None Seen)
[2024-10-07 11:30] LABS: Basophils # (auto) 0.1 10 ^3/uL (0-0.2); Basophils % (auto) 0.6 % (0.0-2.0); Eosinophils # (auto) 0.1 10 ^3/uL (0-0.8); Eosinophils % (auto) 1.7 % (0.0-7.0); Hematocrit 39.6 % (41.0-53.0); Hemoglobin 13.7 g/dL (13.5-17.5); Lymphocytes # (auto) 1.5 10 ^3/uL (0.4-5.4); Lymphocytes % (auto) 17.9 % (10.0-50.0); Mean Corpuscular Hemoglobin 32.2 pg (28.0-32.0); Mean Corpuscular Hgb Conc. 34.6 g/dL (32.0-36.0); Monocytes # (auto) 0.7 10 ^3/uL (0-1.3); Monocytes % (auto) 7.9 % (0.0-12.0); Neutrophils # (auto) 6.2 10 ^3/uL (1.6-8.6); Neutrophils % (auto) 71.9 % (37.0-80.0); Platelet Count (auto) 190 10^3/uL (140-450); Red Blood Cells 4.26 10^6/uL (4.5-5.90); Red Cell Distribution Width 13.7 % (11.8-14.3); White Blood Cell 8.6 10^3/uL (4.4-10.8)
[2024-10-07 11:36] LABS: Urine Blood Negative /uL (Negative); Urine Clarity Clear (Clear); Urine Color Light-Yellow (Yellow); Urine Protein, UAD 1+ (Negative); Urine Specific Gravity 1.007 (1.001-1.035); Urine Squamous Epithelial Cell None Seen /hpf (<5); Urine Urobilinogen Normal (Negative); Urine WBC 1 /HPF (0-3)
[2024-10-07 11:45] LABS: INR 1.02 (0.9-1.15); Partial Thromboplastin Time 28.7 SEC (24.5-34.5); Prothrombin Time 10.8 sec (9.3-11.8)
[2024-10-07 12:08] LABS: Alanine Aminotransferase 23 U/L (7-40); Alkaline Phosphatase 98 U/L (46-116); Anion Gap 5 (5-15); Aspartate Aminotransferase 21 U/L (13-40); BUN/Creatinine Ratio 12.5 (10.0-20.0); Blood Urea Nitrogen 11 mg/dL (9-23); Calcium 9.4 mg/dL (8.7-10.4); Carbon Dioxide 26 mmol/L (20-31); Chloride 107 mmol/L (98-107); Sodium 138 mmol/L (136-145); Total Protein 6.8 g/dL (5.7-8.2)
[2024-10-07 12:09] LABS: Albumin 4.3 g/dL (3.2-4.8); Bilirubin, Total 0.5 mg/dL (0.2-1.0)
[2024-10-07 12:12] LABS: Glucose 129 mg/dL (74-106)
[~2024-10-13] VITALS: Ht 180.3 cm; Wt 93.9 kg
[~2024-10-13 08:33] MED LIST changes: -ASPI-325 PO; +ASPI1TAB20 PO; +HYDR-4798 PO; -SACC250C PO; -SIME80CH49 PO
[2024-10-13] MEDS ORDERED: MIDAZOLAM HCL 2MG/2ML 2ml VIAL (1mg/ml) ONE (09:22)
[2024-10-13] MEDS ORDERED: KETAMINE 50mg/ML 1ml syringe ONE (09:22)
[2024-10-13] MEDS ORDERED: GLYCOPYRROLATE 0.2 MG/ML 1ML VIAL ONE (09:24)
[2024-10-13] MEDS ORDERED: PROPOFOL 10 MG/ML 20 ML IV ONE (09:24)
[2024-10-13] MEDS ORDERED: ONDANSETRON HCL 4 MG/2 ML VIAL ONE (09:24)
[2024-10-13] MEDS ORDERED: KETOROLAC TROMETH 30 MG/ML 1ML VIAL ONE (10:16)
[2024-10-13] MEDS ORDERED: HYDROmorphone HCL 2 MG/ML VL/or syr IV PRN (10:30)
--- NOTE | 2024-10-13 10:49 | DVHOP2 ---
Operative Report - 2 Report Details Date: 10/13/24 Preop Diagnosis: 1. Right third metatarsalgia 2. Right third metatarsal callus 3. Right foot pain 4. Left second toe hammer toe 5. Left second toe pain Postop Diagnosis: Right foot metatarsalgia and left foot second toe Surgeon: Magaly Mena MD Anesthesiologist: See anesthesia Anesthesia: Mac Consent: The patient was informed of the risks and benefits of the procedure. These include but are not limited to complications of anesthesia, postoperative infection, incomplete relief of symptoms, recurrence of symptoms, damage to blood vessels, nerves and tendons, deep venous thrombosis, pulmonary embolism and possible need for repeat surgery in the future. Complications: None Estimated Blood Loss: Minimal Fluids: See anesthesia Findings: Consistent with the diagnosis Indications for Surgery: Worsening bilateral foot pain Name of Procedure Performed 1. Right third metatarsal leah osteotomy (69056) 2. Right fourth metatarsal leah osteotomy (87006) 2. Left second toe hammer toe repair (68990) Procedure Details Procedure Details: PRE-PROCEDURE INFORMATION: In the pre-op holding area, the extremity to be operated on was clearly marked and the patient verified correct laterality of the marking. The patient was transferred to the OR table and placed in a supine position. A timeout was performed in which identification of the correct patient, procedure, location, and materials was done. The bilateral foot and leg were prepped and draped in normal sterile fashion. DESCRIPTION OF PROCEDURE: Attention was directed to the right 3rd and 4th metatarsal metatarsal head where a stab incision was made. This incision was deepened through blunt and sharp dissection. Care was taken to avoid damage to neurovascular structures throughout dissection. The incision was carried to the level of the 3rd and 4th metatarsal metatarsal neck. Using an MIS bur, an osteotomy was made across the neck of the metatarsal head. It was noted on intraoperative fluoroscopy, there was significant reduction of deformity. Incision was closed with 4-0 nylon. Attention was directed to the left 2nd toe where the hammertoe deformity was located. Using the MIS bur, a stab incision was made at the proximal phalanx. The incision was carried down to the bone. Care was taken to avoid any n eurovascular tendinous structures. The bur was then used to perform a osteotomy of the proximal phalanx. The bur was also used to perform an osteotomy of the distal phalanx. It was noted there was good correction of the hammertoe deformity. Incision was closed with 4-0 nylon. All surgical wounds were irrigated copiously with saline and closed in layers with the aforementioned suture material. A dry sterile dressing was placed on the surgical extremity. The patient was placed in a postop shoe POSTOPERATIVE INFORMATION: The patient tolerated the above noted procedure and anesthesia well and was transferred to the PACU with vital signs stable, and vascular status intact with capillary refill intact to all digits. Postoperative instructions reviewed in detail with the patient with written instructions provided. Patient will return to clinic in approximately 10-14 days for first postoperative visit. Patient has the number of the clinic and was instructed to call prior to that time should any problems, questions, or concerns arise. Condition Good Disposition Home MAGALY MENA DPM Oct 13, 2024 10:49
[2024-10-13] MEDS: ceFAZolin 2 GM/D5W100ml 100 ML IV ONE (11:00)
[2024-10-13 11:20] VITALS: PULSE 71; RESP 17; TEMP 98.2; O2SAT 97
[2024-10-13 11:55] VITALS: BP 130/69; PULSE 70; RESP 12; O2SAT 93
== END 2024-10-13 12:20 | disposition home or self-care (01) ==
LOC: SUR 08:33
PROVIDERS: ATTEND Podiatrist
DX: M20.42 Other hammer toe(s) (acquired), left foot (principal); M77.41 Metatarsalgia, right foot; L97.509 Non-pressure chronic ulcer of other part of unspecified foot with unspecified severity; M25.775 Osteophyte, left foot; F17.210 Nicotine dependence, cigarettes, uncomplicated; I10 Essential (primary) hypertension; Z98.890 Other specified postprocedural states; Z79.82 Long term (current) use of aspirin; Z79.01 Long term (current) use of anticoagulants
CPT/HCPCS: 28285; 28308; 36415; 80053; 81001; 85025; 85610; 85730; J1885; J2250; J2405; J2704

== ENCOUNTER → 2024-12-02 | Outpatient (CLI) | payer OTHER ==
[2024-12-02 07:36] LABS: Potassium 4.1 mmol/L (3.5-5.1); Sodium 140 mmol/L (136-145)
[2024-12-02 07:37] LABS: Anion Gap 7 (5-15); Calcium 9.2 mg/dL (8.7-10.4); Carbon Dioxide 23 mmol/L (20-31)
[2024-12-02 07:42] LABS: BUN/Creatinine Ratio 14.4 (10.0-20.0); Blood Urea Nitrogen 13 mg/dL (9-23); Chloride 110 mmol/L (98-107)
[2024-12-02 07:48] LABS: Glucose 106 mg/dL (74-106)
[2024-12-02 08:14] LABS: Triglycerides 91 mg/dL (< 150)
[2024-12-02 08:15] LABS: LDL Cholesterol 82 mg/dL (< 100)
[2024-12-02 08:16] LABS: Cholesterol 132 mg/dL (< 200)
[2024-12-02 08:21] LABS: HDL Cholesterol 36 mg/dL (40-59)
[2024-12-02 09:17] LABS: Protein, Urine 43.7 mg/dL (1-14)
[2024-12-02 09:20] LABS: Creatinine, Urine 74.16 mg/dL (30.0-125.0); Urine Protein/Creatinine Ratio 0.59
== END | disposition home or self-care (01) ==
LOC: LAB 06:15
PROVIDERS: ATTEND Internal Medicine
DX: I10 Essential (primary) hypertension (principal); E78.5 Hyperlipidemia, unspecified; F11.20 Opioid dependence, uncomplicated; R80.9 Proteinuria, unspecified
CPT/HCPCS: 36415; 80048; 80061; 82570; 84156

== ENCOUNTER 2024-12-28 08:48 | Outpatient (CLI) | payer OTHER | END 2024-12-28 17:00 | disposition home or self-care (01) | LOC: LAB 08:48 | PROVIDERS: ATTEND Internal Medicine | DX: Z12.11 Encounter for screening for malignant neoplasm of colon (principal) | CPT/HCPCS: 82270 ==